=== PATIENT | male | born 1990 | race Caucasian/White ===

== ENCOUNTER → 2018-03-19 | Outpatient (REF) | payer BC | LOC: M LAB REF 12:18 | PROVIDERS: ATTEND Physician Assistant | DX: J02.9 Acute pharyngitis, unspecified (principal) ==

== ENCOUNTER → 2019-11-21 | Outpatient (CLI) | payer BC | LOC: M PLALAB 12:09 | PROVIDERS: ATTEND Advanced Practice Midwife | DX: Z84.81 Family history of carrier of genetic disease (principal); Z31.440 Encounter of male for testing for genetic disease carrier status for procreative management ==

== ENCOUNTER 2021-01-28 08:21 | Emergency (ER) | payer BC ==
[~2021-01-28] VITALS: Ht 167.6 cm; Wt 77.0 kg
--- OUTSIDE RECORDS SUMMARY | 2021-01-28 08:30 | CCD ---
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 Role Phone Maring, Aleks PA Unavailable Unavailable Maring, Aleks PA Unavailable Unavailable Maring, Aleks PA Unavailable Unavailable Maring, Aleks PA Unavailable Unavailable Maring, Aleks PA Unavailable Unavailable Maring, Aleks PA Unavailable Unavailable Maring, Aleks PA Unavailable Unavailable Maring, Aleks PA Unavailable Unavailable Maring, Aleks PA Unavailable Unavailable Maring, Aleks PA Unavailable Unavailable Maring, Aleks PA Unavailable Unavailable Maring, Aleks PA Unavailable Unavailable Maring, Aleks PA Unavailable Unavailable Maring, Aleks PA Unavailable Unavailable Maring, Aleks PA Unavailable Unavailable Maring, Aleks PA Unavailable Unavailable PICKERAL JR J CHANTAL PA-C Unavailable Unavailable PICKERAL JR, J CHANTAL PA-C Unavailable Unavailable PICKERAL JR, J CHANTAL PA-C Unavailable Unavailable PICKERAL JR, J CHANTAL PA-C Unavailable Unavailable PICKERAL JR, J CHANATL PA-C Unavailable Unavailable PICKERAL JR, J CHANTAL PA-C Unavailable Unavailable PICKERAL JR, J CHANTAL PA-C Unavailable Unavailable PICKERAL JR, J CHANTAL PA-C Unavailable Unavailable PICKERAL JR, J CHANTAL PA-C Unavailable Unavailable PICKERAL JR, J CHANTAL PA-C Unavailable Unavailable PICKERAL JR, J CHANTAL PA-C Unavailable Unavailable PICKERAL JR, J CHANTAL PA-C Unavailable Unavailable PICKERAL JR, J CHANTAL PA-C Unavailable Unavailable PICKERAL JR, J CHANTAL PA-C Unavailable Unavailable PICKERAL JR, J CHANTAL PA-C Unavailable Unavailable PICKERAL JR, J CHANTAL PA-C Unavailable Unavailable PICKERAL JR, J CHANTAL PA-C Unavailable Unavailable PICKERAL JR, J CHANTAL PA-C Unavailable Unavailable PICKERAL JR, Paula CORNEJO PA-C Unavailable Unavailable PICKERAL JR, Paula CORNEJO PA-C Unavailable Unavailable PICKERAL JR, Paula CORNEJO PA-C Unavailable Unavailable PICKERAL JR, Paula CORNEJO PA-C Unavailable Unavailable PICKERAL JR, Paula CORNEJO PA-C Unavailable Unavailable PICKERAL JR, Paula CORNEJO PA-C Unavailable Unavailable PICKERAL JR, Paula CORNEJO PA-C Unavailable Unavailable PICKERAL JR, Paula CORNEJO PA-C Unavailable Unavailable PICKERAL JR, Paula CORNEJO PA-C Unavailable Unavailable NorgroveChantal JUAN DANIEL Unavailable Unavailable Re-disclosure Warning The records that you are about to access may contain information from federally-assisted alcohol or drug abuse programs. If such information is present, then the following federally mandated warning applies: This information has been disclosed to you from records protected by federal confidentiality rules (42 CFR part 2). The federal rules prohibit you from making any further disclosure of this information unless further disclosure is expressly permitted by the written consent of the person to whom it pertains or as otherwise permitted by 42 CFR part 2. A general authorization for the release of medical or other information is NOT sufficient for this purpose. The Federal rules restrict any use of the information to criminally investigate or prosecute any alcohol or drug abuse patient.The records that you are about to access may contain highly sensitive health information, the redisclosure of which is protected by Article 27-F of the [facility] Public Health law. If you continue you may have access to information: Regarding HIV / AIDS; Provided by facilities licensed or operated by the [facility] Office of Mental Health; or Provided by the [facility] Office for People With Developmental Disabilities. If such information is present, then the following [facility] mandated warning applies: This information has been disclosed to you from confidential records which are protected by state law. State law prohibits you from making any further disclosure of this information without the specific written consent of the person to whom it pertains, or as otherwise permitted by law. Any unauthorized further disclosure in violation of state law may result in a fine or nursing home sentence or both. A general authorization for the release of medical or other information is NOT sufficient authorization for further disc losure. Family History Family Member Name Family Member Gender Family Member Status Date o f Status Description Data Source(s) Unknown Female Problem [facility] ([facility]) Encounters Encounter Providers Location Date Indications Data Source(s ) Outpatient Attender: Chantal FRANCES 07:11:49 AM EST - 01/28/2021 08:05:16 AM EST [facility] ([facility]) Outpatient Attender: Aleks FRANCES 12/08/19 07:24:46 AM EDT - 12/07/2020 08:23:36 AM EDT [facility] ([facility] ) Outpatient Attender: CHANTAL BILLS JR Adriel Aaron 0 09/08/2020 02:40:00 PM EDT [facility] ([facility] ) Immunizations Vaccine Date Status Description Data Source(s) COVID-19 VACCINE Moderna 05/20/2020 12:00:00 AM EDT completed [facility] Vaccine Series Complete: YESThis Data wa s Submitted to [facility] Via [employer]. COVID-19 VACCINE Moderna 04/22/2020 12:00:00 AM EST completed [facility] Vaccine Series Complete: NOThis Data was Submitted to [facility] Via [employer]. INFLUENZA VIRUS VACCINE QUADRIVALENT 2019- (6 MOS AN D UP) 12/05/2019 12:00:00 AM EDT completed [facility] Medications Medication Brand Name Start Date Product Form Dose Route Admi nistrative Instructions Pharmacy Instructions Status Indications Reaction Description Data Source(s) 60 mcg (15 mcg x 4)/0.5 mL 01/08/2021 12:00:00 AM EDT [facility] 0 INJECT DIRECTED INJECT DIRECTED SOLD: 01/08/2021 [facility] 20 mg 12/07/2020 12:00:00 AM EDT tablet 10 TAKE TWO TABLETS BY MOUTH EVERY MORNING FOR 5 DAYS TAKE TWO TABLETS BY MOUTH EVERY MORNING FOR 5 DAYS AMBREEN [facility] 250 mg 12/07/2020 12:00:00 AM EDT tablet 6 TAKE TWO TABLETS BY MOUTH AT ONCE ON THE FIRST DAY THEN TAKE ONE DAILY THEREAFTER TAKE TWO TABLETS BY MOUTH AT ONCE ON THE FIRST DAY THEN TAKE ONE DAILY THEREAFTER SOLD: 12/07/2020 [facility] Insurance Providers Payer name Policy type / Coverage type Policy ID Covered alliance party ID Covered alliance party's relationship to maldonado Policy Maldonado Plan Information [facility] Blue Cross and Blue Shield - [place] Blue Cross/B lue Shield [id number] Spouse [id number] [employer] - [place] Blue [employer]/B lue Shield [id number] Self [id number] [place] P[place] 302/307 [id number] [place] [employer] [id number] Family Dependent [employer] [id number] MO2 [id number] [place] P[place]/307 [id number] SP [id number] [employer] [id number] Self [id number] Problems, Conditions, and Diagnoses No Information Surgeries/Procedures Procedure Description Date Indications Data Source(s) PERIODIC PREVENTIVE MED EST PATIENT 18-39 YRS 09/09/19 12:00:00 AM EDT [facility] ([facility]) Results ID Date Data Source [id number] 12/07/2020 07:30:00 AM EDT [facility] Name Value Range Interpretation Code Description Data Shannan rce(s) Supporting Document(s) SARS-CoV-2 RNA Resp Ql [facility] was ordered by NIGEL thompson and reported by NIGEL Quiroz. Procedure Social History No Information Vital Signs ID Date Data Source UNK Name Value Range Interpretation Code Description Data Source(s) Systolic blood pressure 112 mm[Hg] 112 mm[Hg] [facility] ([facility]) Diastolic blood pressure 76 mm[Hg] 76 mm[Hg] [facility] ([facility]) Heart rate 68 /min 68 /min [facility] Body height 66.25 [in_i] 66.25 [in_i] [facility] ([facility]) 5'6.25" Body weight 162.00 [lb_av] 162.00 [lb_av] MEDEN T ([facility]) Body mass index (BMI) [Ratio] 25.9 kg/m2 25.9 k g/m2 [facility] ([facility])
--- OUTSIDE RECORDS SUMMARY | 2021-01-28 11:38 | CCD ---
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 If you continue you may have access to information: Regarding HIV / AIDS; Provided by facilities licensed or operated by the [facility] Office of Mental Health; or Provided by the [facility] Office for People With Developmental Disabilities. If such information is present, then the following [facility] mandated warning applies: This information has been [...] law may result in a fine or prison sentence or both. A general authorization for [...] EST - 01/28/2021 08:05:16 AM EST [facility] ([facility]) Outpatient Attender: Aleks FRANCES 12/08/19 07:24:46 AM EDT - 12/07/2020 08:23:36 AM EDT [facility] ([facility] ) Outpatient Attender: CHANTAL BILLS JR Adriel Aaron 0 09/08/2020 02:40:00 PM EDT [facility] ([facility] ) Immunizations Vaccine Date Status Description Data Source(s) COVID-19 VACCINE Moderna 05/20/2020 12:00:00 AM EDT completed [facility] Vaccine Series Complete: YESThis Data wa s Submitted to [facility] Via [employer]. COVID-19 VACCINE Moderna 04/22/2020 12:00:00 AM EST completed [facility] Vaccine Series Complete: NOThis Data was Submitted to [facility] Via [employer]. INFLUENZA VIRUS VACCINE QUADRIVALENT 2019- (6 MOS [...] type / Coverage type Policy ID Covered republican ID Covered republican's relationship to maldonado Policy Maldonado Plan Information [employer] Blue [employer] - [place] Blue Cross/B lue Shield [id number] Spouse [id number] [employer] - [place] Blue [employer]/B [employer] Shield [id number] Self [id number] [place] P[place] 302/307 [id number] [employer] [id number] Family Dependent [employer]OM[employer] [id number] [id number] [place] PPO 302/307 [id number] SP [id number] [employer] [id number] Self [id number] Problems, Conditions, and Diagnoses No Information Surgeries/Procedures Procedure Description Date Indications Data Source(s) PERIODIC PREVENTIVE MED EST PATIENT 18-39 YRS 09/09/19 12:00:00 AM EDT [facility] ([facility]) Results ID Date Data Source [id number] 12/07/2020 07:30:00 AM EDT [facility] Name Value Range Interpretation Code Description Data Shannan rce(s) Supporting Document(s) SARS-CoV-2 RNA Resp Ql [place]+probe [facility]ECTED [facility] This lab was ordered by NIGEL thompson and reported by NIGEL Quiroz. Procedure Social History No Information Vital Signs ID Date Data Source UNK Name Value Range Interpretation Code Description Data Source(s) Systolic blood pressure 112 mm[Hg] 112 mm[Hg] M EDENT ([facility]) Diastolic blood pressure 76 mm[Hg] 76 mm[Hg] [facility] ([facility]) Heart rate 68 /min 68 /min [facility] ([facility]) Body height 66.25 [in_i] 66.25 [in_i] [facility] 5'6.25" Body weight 162.00 [lb_av] 162.00 [lb_av] MEDEN T ([facility]) Body mass index (BMI) [Ratio] 25.9 kg/m2 25.9 k g/m2 [facility]
[2021-01-28 12:19] VITALS: BP 134/86
== END 2021-01-28 12:21 | disposition home or self-care (01) ==
LOC: M ED 08:21
DX: B34.9 Viral infection, unspecified (principal); Z88.1 Allergy status to other antibiotic agents